=== PATIENT | female | born 1955 | race African-American/Black ===

== ENCOUNTER 2017-05-05 10:25 | Emergency (ER) | payer MEDICAID ==
[~2017-05-05] VITALS: Ht 167.6 cm; Wt 68.0 kg
--- NOTE | 2017-05-05 10:34 | NUR ---
AAO3, BIBRA 88 [facility] C/O SOB D/T ABDOMINAL DISTENTION, LAST [facility]-5 DAYS AGO [facility]. SKIN IS WARM AND DRY. PLACED ON THE MONITOR. DR NIETO AT FOR EVAL.
[2017-05-05 11:30] LABS: BASOPHILS # (AUTO) 0.1 /CMM (0.0-0.2); BASOPHILS % (AUTO) 0.9 % (0.0-2.0); EOSINOPHILS % (AUTO) 0.6 % (0.0-6.0); HEMATOCRIT 41 % (33-45); LYMPHOCYTES # (AUTO) 1.2 /CMM (0.8-4.8); LYMPHOCYTES % (AUTO) 15.7 % (20.0-44.0); MEAN CORPUSCULAR HEMOGLOBIN 34 PG (26.0-33.0); MEAN CORPUSCULAR HGB CONC 34 g/dl (31.0-36.0); MEAN CORPUSCULAR VOLUME 99 fL (82-100); MONOCYTES # (AUTO) 0.5 /CMM (0.1-1.30); MONOCYTES % (AUTO) 6.3 % (2.0-12.0); NEUTROPHILS # (AUTO) 6.1 /CMM (1.8-8.9); NEUTROPHILS % (AUTO) 76.5 % (43.0-81.0); PLATELET COUNT (AUTO) 162 /CMM (150-450); RDW COEFFICIENT OF VARIATION 16.9 (11.5-15.0); RED BLOOD CELL COUNT(AUTO) 4.17 MIL/uL (4.0-5.2); WHITE BLOOD COUNT (AUTO) 7.9 K/uL (4.3-11.0)
[2017-05-05 11:40] LABS: CALCIUM, SERUM 9.4 mg/dL (8.5-10.1); CREATININE 0.8 mg/dL (0.6-1.3); POTASSIUM 3.5 mmol/L (3.5-5.1)
[2017-05-05 11:44] LABS: INR 1.22 (0.85-1.15)
--- NOTE | 2017-05-05 11:45 | NUR ---
PATIENT IS ASKING DILAUDID FOR HER PAIN, DR NIETO MADE AWARE AND REFUSE TO GIVE DILAUDID.
[2017-05-05 11:52] LABS: ALBUMIN 2.4 g/dL (3.4-5.0); BILIRUBIN,DIRECT 1.7 mg/dL (0.0-0.2); BILIRUBIN,TOTAL 3.4 mg/dL (0.2-1.0); TOTAL PROTEIN, SERUM 8.5 g/dL (6.4-8.2)
--- NOTE | 2017-05-05 13:47 | NUR ---
PARACENTESIS IN PROGRESS AT BS.
--- NOTE | 2017-05-05 14:25 | NUR ---
ABOUT 2100 ML OF FLUID WAS REMOVED FROM PARACENTESIS.
[2017-05-05 14:52] VITALS: BP 122/87
--- NOTE | 2017-05-05 14:52 | NUR ---
Patient discharged to home in stable condition. Written and verbal after care instructions given. Patient verbalizes understanding of instruction.
== END 2017-05-05 15:01 | disposition home or self-care (01) ==
LOC: ER 10:27
DX: R18.8 Other ascites (principal); M19.90 Unspecified osteoarthritis, unspecified site
CPT/HCPCS: 36415; 49083; 80048; 80076; 85025; 85730; 99285; A4606; Z7610; 76942-TC

== ENCOUNTER 2023-09-10 10:33 | Inpatient (IN) | payer MEDICARE, OTHER ==
[~2023-09-10] VITALS: Ht 165.1 cm; Wt 67.1 kg
[2023-09-10] MEDS ORDERED: MAGN400O6 PO (10:56)
[2023-09-10] MEDS ORDERED: LORA-258 PO (10:56)
[2023-09-10] MEDS ORDERED: PARO40TA4 PO (10:56)
[2023-09-10] MEDS ORDERED: BUSP5TAB3 PO (10:56)
[2023-09-10] MEDS ORDERED: FAMO1TAB29 PO (10:56)
[2023-09-10] MEDS ORDERED: GABA300C PO (10:56)
[2023-09-10] MEDS ORDERED: PROP20TA7 PO (10:56)
[2023-09-10] MEDS ORDERED: FOLI0.4T6 PO (10:56)
[2023-09-10] MEDS ORDERED: RISP2TAB5 PO (10:56)
[2023-09-10] MEDS ORDERED: RISP1TAB7 PO (10:56)
[2023-09-10] MEDS ORDERED: FENO160T PO (10:56)
[2023-09-10] MEDS ORDERED: BISA10SU11 RC (10:56)
[2023-09-10] MEDS ORDERED: SENN8.6T19 PO (10:56)
[2023-09-10] MEDS ORDERED: DOCU100T2 PO (10:56)
[2023-09-10] MEDS ORDERED: MAGN400T52 PO (10:56)
[2023-09-10] MEDS ORDERED: ACET-868 PO (10:56)
[2023-09-10] MEDS ORDERED: ACET-2030 PO (10:56)
[2023-09-10] MEDS ORDERED: HYDR-4209 PO (10:58)
[2023-09-10] MEDS ORDERED: NA P133E RC (10:58)
[2023-09-10 11:41] LABS: BASOPHILS % (AUTO) 0.6 % (0.0-2.0); EOSINOPHILS # (AUTO) 0.1 K/uL (0.0-0.7); EOSINOPHILS % (AUTO) 2.1 % (0.0-6.0); LYMPHOCYTES # (AUTO) 1.1 K/uL (0.8-4.8); MEAN CORPUSCULAR HEMOGLOBIN 18 PG (26.0-33.0); MEAN CORPUSCULAR HGB CONC 29 g/dl (31.0-36.0); MEAN CORPUSCULAR VOLUME 62 fL (82-100); MONOCYTES # (AUTO) 0.6 K/uL (0.1-1.30); MONOCYTES % (AUTO) 9.9 % (2.0-12.0); NEUTROPHILS % (AUTO) 68.4 % (43.0-81.0); PLATELET COUNT (AUTO) 254 K/uL (150-450); RED BLOOD CELL COUNT(AUTO) 3.09 MIL/uL (4.0-5.2); RED CELL DISTRIBUTION WIDTH 21.5 % (11.5-15.0); WHITE BLOOD COUNT (AUTO) 5.8 K/uL (4.3-11.0)
[2023-09-10 11:43] LABS: HEMATOCRIT 19 % (33-45); HEMOGLOBIN 5.6 g/dL (11.5-14.8)
[2023-09-10 11:47] LABS: INR 1.12 (0.91-1.10); PARTIAL THROMBOPLASTIN TIME 26.5 SEC (24.3-34.3); PROTHROMBIN TIME 11.8 SECS (9.2-11.1)
[2023-09-10 11:54] LABS: ALBUMIN 2.7 g/dL (3.4-5.0); BILIRUBIN,DIRECT 0.2 mg/dL (0.0-0.2); BILIRUBIN,TOTAL 0.5 mg/dL (0.2-1.0); CALCIUM, SERUM 9.6 mg/dL (8.5-10.1); CREATININE 0.9 mg/dL (0.6-1.3); POTASSIUM 3.8 mmol/L (3.5-5.1); TOTAL PROTEIN, SERUM 6.6 g/dL (6.4-8.2)
[2023-09-10 12:30] LABS: ANISOCYTOSIS 1+; BASOPHILS % (MANUAL) 0 % (0.0-2.0); EOSINOPHILS % (MANUAL) 1 % (0-4); HYPOCHROMASIA 2+; LYMPHOCYTES % (MANUAL) 17 % (16-48); MONOCYTES % (MANUAL) 10 % (0-11.0); NEUTROPHILS % (MANUAL) 72 (42-76); OVALOCYTES 1+; PLATELET ESTIMATE ADEQUATE; STOMATOCYTES 1+
[2023-09-10] MEDS ORDERED: Z GUARD REMEDY 4 OZ OINT TP PRN (12:30)
[2023-09-10] MEDS ORDERED: ACETAMINOPHEN 325 MG TABLET PO PRN ×2 (12:30→18:00)
[2023-09-10] MEDS ORDERED: ONDANSETRON HCL/PF 4 MG/2 ML VIAL IVP PRN (12:30)
[2023-09-10] MEDS ORDERED: ZOLPIDEM TARTRATE 5 MG TABLET PO PRN (12:30)
[2023-09-10] MEDS ORDERED: MAGNESIUM HYDROXIDE 30 ML UDC PO PRN ×2 (12:30→18:00)
[2023-09-10] MEDS ORDERED: MAG HYDROX/AL HYDROX/SIMETH 30 ML UDC PO PRN (12:30)
[2023-09-10 12:39] VITALS: BP 132/81; TEMP 98.2; O2SAT 95
[2023-09-10 14:51] VITALS: BP 114/68; TEMP 98.8
[2023-09-10 15:12] VITALS: BP 116/71; TEMP 98.4
[2023-09-10] MEDS: CALCIUM CARBONATE 500 MG TAB.CHEW PO PRN (16:03)
[2023-09-10 16:12] VITALS: BP 115/75; TEMP 98.8
[2023-09-10] MEDS ORDERED: NA PHOS,M-B/NA PHOS,DI-BA 1 EA ENEMA RC PRN (18:00)
[2023-09-10] MEDS ORDERED: HYDROCODONE/APAP 5/325MG TABLET PO PRN (18:00)
[2023-09-10] MEDS ORDERED: LORAZEPAM 0.5 MG TABLET PO PRN (18:00)
[2023-09-10] MEDS ORDERED: ACETAMINOPHEN ES 500 MG TABLET PO PRN (18:00)
[2023-09-10] MEDS ORDERED: BISACODYL SUPP (10 MG) 10 MG/SUPP.RECT SUPP.RECT RC PRN (18:00)
[2023-09-10 18:08] VITALS: BP 119/70; TEMP 97.4
[2023-09-10] MEDS ORDERED: CALCIUM CARBONATE 500 MG TAB.CHEW PO PRN (19:30)
[2023-09-10 20:00] VITALS: BP 128/71; TEMP 97.5; O2SAT 95
[2023-09-10 20:01] LABS: HEMOGLOBIN 6.7 g/dL (11.5-14.8)
[2023-09-10] MEDS: SENNOSIDES 8.6 MG TABLET PO SCH (21:06)
[2023-09-10] MEDS: risperiDONE 1 MG TABLET PO SCH (21:07)
[2023-09-11] VITALS (12 sets, daily range): BP systolic 106–138; BP diastolic 65–80; TEMP 97.4–98.4; O2SAT 95–98
[2023-09-11 07:19] LABS: BASOPHILS # (AUTO) 0.1 K/uL (0.0-0.2); BASOPHILS % (AUTO) 2.4 % (0.0-2.0); EOSINOPHILS # (AUTO) 0.2 K/uL (0.0-0.7); EOSINOPHILS % (AUTO) 3.8 % (0.0-6.0); HEMATOCRIT 26 % (33-45); HEMOGLOBIN 7.9 g/dL (11.5-14.8); MEAN CORPUSCULAR HEMOGLOBIN 22 PG (26.0-33.0); MEAN CORPUSCULAR HGB CONC 31 g/dl (31.0-36.0); MEAN CORPUSCULAR VOLUME 70 fL (82-100); MONOCYTES # (AUTO) 0.5 K/uL (0.1-1.30); NEUTROPHILS # (AUTO) 2.2 K/uL (1.8-8.9); NEUTROPHILS % (AUTO) 54.8 % (43.0-81.0); PLATELET COUNT (AUTO) 220 K/uL (150-450); RED BLOOD CELL COUNT(AUTO) 3.68 MIL/uL (4.0-5.2); RED CELL DISTRIBUTION WIDTH 26.8 % (11.5-15.0)
[2023-09-11 07:25] LABS: CREATININE 0.9 mg/dL (0.6-1.3); MAGNESIUM 1.9 mg/dL (1.8-2.4); PHOSPHORUS 3.3 mg/dL (2.5-4.9); POTASSIUM 3.8 mmol/L (3.5-5.1)
[2023-09-11] MEDS ORDERED: Medication Not On Formulary EA (Magnesium Oxide 400 MG) PO SCH (09:00)
[2023-09-11] MEDS: PAROXETINE HCL 20 MG TABLET PO SCH (09:15)
[2023-09-11] MEDS: busPIRone 5 MG TABLET PO SCH (09:15)
[2023-09-11] MEDS: risperiDONE 1 MG TABLET PO SCH (09:15)
[2023-09-11] MEDS: FOLIC ACID 1 MG TABLET PO SCH (09:15)
[2023-09-11] MEDS: FENOFIBRATE NANOCRYS (145 MG) 145 MG TABLET PO SCH (09:15)
[2023-09-11] MEDS: PANTOPRAZOLE 40 MG TABLET.DR PO SCH (09:15)
[2023-09-11] MEDS: DOCUSATE SODIUM 100 MG CAPSULE PO SCH (09:15)
[2023-09-11] MEDS: PROPRANOLOL HCL 10 MG TABLET PO SCH (09:15)
[2023-09-11] MEDS: GABAPENTIN 300 MG CAPSULE PO SCH (09:16)
[2023-09-11] MEDS ORDERED: PANT40TA2 PO (10:30)
[2023-09-11] MEDS ORDERED: FERR-56 PO (10:32)
[2023-09-11 15:39] LABS: OCCULT BLOOD STOOL POSITIVE (NEGATIVE)
== END 2023-09-11 14:15 | DRG 433 ==
LOC: ER 10:35 → TELE1 11:56
PROVIDERS: ADMIT Student in an Organized Health Care Education/Training Program; ATTEND Student in an Organized Health Care Education/Training Program
PROC: 30233N1 Transfusion of Nonautologous Red Blood Cells into Peripheral Vein, Percutaneous Approach (ICD-10-PCS; principal; 2023-09-10)
DX: K74.60 Unspecified cirrhosis of liver (principal); E44.0 Moderate protein-calorie malnutrition; R18.8 Other ascites; E78.5 Hyperlipidemia, unspecified; I10 Essential (primary) hypertension; M19.90 Unspecified osteoarthritis, unspecified site; D63.8 Anemia in other chronic diseases classified elsewhere; Z68.24 Body mass index [BMI] 24.0-24.9, adult; N28.9 Disorder of kidney and ureter, unspecified
CPT/HCPCS: 36415; 71045-TC; 80048-TC; 80076-TC; 82272-TC; 83735-TC; 84100-TC; 85025-TC; 85027-TC; 85730-TC; 86850-TC; G0378; J7050; P9016